=== PATIENT | female | born 1990 | race Caucasian/White ===

== ENCOUNTER 2021-08-04 18:17 | Day surgery (SDC) | payer OTHER ==
[2021-08-04 19:16] VITALS: BMI 31.1
[2021-08-04 20:05] LABS: Fetal Membranes Rupture No Membranes Rupture (No Rupture)
[2021-08-04] MEDS ORDERED: hydrALAZINE 20 MG/ML VIAL SLOW IVP PRN (21:10)
== END 2021-08-04 21:11 | disposition home or self-care (01) ==
LOC: CSHLD/OP 18:17
PROVIDERS: ATTEND Obstetrics & Gynecology
DX: O99.891 Other specified diseases and conditions complicating pregnancy (principal); N89.8 Other specified noninflammatory disorders of vagina; Z3A.38 38 weeks gestation of pregnancy
CPT/HCPCS: 84112; 99284

== ENCOUNTER 2021-08-14 11:09 | Outpatient (CLI) | payer OTHER ==
[2021-08-14 19:21] LABS: SARS-CoV-2 PCR by NAA Not Detected (NotDetected)
== END 2021-08-14 11:10 | disposition home or self-care (01) ==
LOC: CSHLAB 11:09
PROVIDERS: ATTEND Obstetrics & Gynecology
DX: Z20.822 Contact with and (suspected) exposure to COVID-19 (principal)
CPT/HCPCS: U0003; U0005

== ENCOUNTER 2021-08-17 22:45 | Inpatient (IN) | payer OTHER ==
[~2021-08-17 22:45] MED LIST: Bupivacaine 0.25% HCL 30 ML VIAL ONE
[2021-08-17 23:15] VITALS: BMI 31.1
[2021-08-17] MEDS ORDERED: Butorphanol Tartrate 1 MG/ML VIAL SLOW IVP PRN (23:41)
[2021-08-17] MEDS ORDERED: hydrALAZINE 20 MG/ML VIAL SLOW IVP PRN (23:41)
[2021-08-17] MEDS ORDERED: HYDROcodone/Acetaminophen 5/325 mg Tablet PO PRN (23:41)
[2021-08-17] MEDS ORDERED: Ibuprofen 800 MG TAB PO PRN (23:41)
[2021-08-17] MEDS ORDERED: Lidocaine 1% (PF) 30 ML VIAL SC PRN (23:41)
[2021-08-17] MEDS ORDERED: Ondansetron PF 4 MG/2 ML Vial IVP PRN (23:41)
[2021-08-17] MEDS ORDERED: Lactated Ringer's 1,000 ML IV SCH (23:45)
[2021-08-17] MEDS ORDERED: Penicillin G Potassium 5 MILL.UNITS VIAL ONE (23:50)
[2021-08-17] MEDS ORDERED: Penicillin G Potassium 5 MILL.UNITS in Sodium Chloride 0.9% 100 ML IVPB SCH (23:59)
[2021-08-18 00:25] LABS: Mean Corpuscular HGB CONC 33.1 g/dL (32.0-36.0); Mean Corpuscular Hemoglobin 28.9 pg (27.0-33.0); Mean Corpuscular Volume 87.3 fl (81.6-98.3); Mean Platelet Volume 10.9 fl (7.4-10.4); Platelet Count 217 10x3/uL (150-450); White Blood Cell (WBC) Count 9.6 10x3/uL (3.5-10.5)
[2021-08-18 01:07] LABS: Hep B Surf Ag Non-Reactive S/CO (NonReactive); Syphilis Antibody Nonreactive (Nonreactive); Syphilis Antibody Index 0.07 S/CO (<1.00 Non-Reactive)
[2021-08-18] MEDS: Misoprostol 100 MCG TAB PO SCH ×2 (01:17→11:40)
[2021-08-18] MEDS: Penicillin G 2.5 MILL.units 2.5 MILL.UNITS in Premix Bag 1 BAG IVPB SCH ×3 (03:55→11:36)
[2021-08-18] MEDS ORDERED: Fentanyl 2 mcg/Bup 0.1% Cadd 100 ML ONE (08:41)
[2021-08-18] MEDS ORDERED: diphenhydrAMINE 50 MG/ML VIAL IVP PRN (09:26)
[2021-08-18] MEDS ORDERED: Promethazine HCl 25 MG/ML VIAL IM PRN (09:26)
[2021-08-18] MEDS ORDERED: Lactated Ringer's 500 ML IV PRN (09:26)
[2021-08-18] MEDS ORDERED: ePHEDrine Sulfate 50 MG/10 ML VIAL SLOW IVP PRN (09:26)
[2021-08-18] MEDS ORDERED: Acetaminophen 325 MG TAB PO PRN (09:26)
[2021-08-18] MEDS ORDERED: Ondansetron PF 4 MG/2 ML Vial IVP PRN ×2 (09:26→20:40)
[2021-08-18] MEDS ORDERED: Hydrocerin (Eucerin) Cream 120 gm Jar TOP PRN (09:26)
[2021-08-18] MEDS ORDERED: Naloxone HCl 0.4 mg/ml Vial IVP PRN ×2 (09:26)
[2021-08-18] MEDS ORDERED: Fentanyl 2 mcg/Bupivacaine 0.1% Cassette 100 ML EPIDURAL SCH (09:30)
[2021-08-18] MEDS ORDERED: Communication Order-Pharmacy FS SCH (09:30)
[2021-08-18] MEDS: Lactated Ringer's 1,000 ML IV SCH ×2 (09:39)
[2021-08-18] MEDS: NS w/ Oxytocin 30 units 500 ML IV SCH ×2 (16:41→17:24)
[2021-08-18] MEDS ORDERED: diphenhydrAMINE 25 MG CAP PO PRN (20:40)
[2021-08-18] MEDS ORDERED: Boostrix 0.5 ML (Tdap) VIAL IM ONE (20:40)
[2021-08-18] MEDS ORDERED: Milk Of Magnesia 30 ML UDCUP PO PRN (20:40)
[2021-08-18] MEDS ORDERED: Benzocaine-Menthol 82.5 ML CAN TOP PRN (20:40)
[2021-08-18] MEDS ORDERED: hydrALAZINE 20 MG/ML VIAL SLOW IVP PRN (20:40)
[2021-08-18] MEDS ORDERED: Lanolin Ointment 7 GM TUBE TOP PRN (20:40)
[2021-08-18] MEDS ORDERED: Preparation H Ointment 28 GM TUBE PR PRN (20:40)
[2021-08-18] MEDS ORDERED: HYDROcodone/Acetaminophen 5/325 mg Tablet PO PRN ×2 (20:40)
[2021-08-18] MEDS ORDERED: NS w/ Oxytocin 30 units 500 ML IV SCH (20:40)
[2021-08-18] MEDS ORDERED: Bisacodyl 10 MG SUPP PR PRN (20:40)
[2021-08-18] MEDS: Docusate 100 MG CAP PO SCH (22:08)
[2021-08-18] MEDS: Ibuprofen 800 MG TAB PO SCH (22:08)
[2021-08-19] MEDS: Ibuprofen 800 MG TAB PO SCH ×3 (05:12→21:47)
[2021-08-19 05:56] LABS: Hemoglobin 10.6 g/dL (12.0-15.5)
[2021-08-19] MEDS: Prenatal Vitamin 1 TAB PO SCH (08:43)
[2021-08-19] MEDS: Docusate 100 MG CAP PO SCH ×2 (08:43→21:47)
[2021-08-19] MEDS: Ferrous Sulfate 325 MG TAB PO SCH (11:06)
[2021-08-20] MEDS: Ibuprofen 800 MG TAB PO SCH ×2 (05:00→13:43)
[2021-08-20] MEDS: Lactated Ringer's 1,000 ML IV SCH (07:56)
[2021-08-20] MEDS: Penicillin G 2.5 MILL.units 2.5 MILL.UNITS in Premix Bag 1 BAG IVPB SCH ×2 (07:56→07:59)
[2021-08-20] MEDS: Misoprostol 100 MCG TAB PO SCH ×2 (07:56→07:57)
[2021-08-20 08:00] VITALS: BP 104/58; TEMP 97.7
[2021-08-20] MEDS: Docusate 100 MG CAP PO SCH (08:52)
[2021-08-20] MEDS: Prenatal Vitamin 1 TAB PO SCH (08:52)
[2021-08-20] MEDS: Ferrous Sulfate 325 MG TAB PO SCH (08:52)
== END 2021-08-20 14:55 | disposition home or self-care (01) | DRG 807 ==
LOC: CSHLD/OP 22:45 → CSHLD 23:41 → UNDOADMIN 08-18 01:00 → CSHPP 08-18 20:15 → CSHLD 08-18 20:15
PROVIDERS: ADMIT Obstetrics & Gynecology; ATTEND Obstetrics & Gynecology
PROC: 10E0XZZ Delivery of Products of Conception, External Approach (ICD-10-PCS; principal; 2021-08-18)
PROC: 0KQM0ZZ Repair Perineum Muscle, Open Approach (ICD-10-PCS; 2021-08-18)
DX: O42.02 Full-term premature rupture of membranes, onset of labor within 24 hours of rupture (principal); Z37.0 Single live birth; Z3A.40 40 weeks gestation of pregnancy; O76 Abnormality in fetal heart rate and rhythm complicating labor and delivery; O70.1 Second degree perineal laceration during delivery; O99.824 Streptococcus B carrier state complicating childbirth
CPT/HCPCS: 36415; 51702; 85014; 85018; 85027; 86780; 86850; 86900; 86901; 87340; 99285; J0595; J2001; J2540; J2590; J7120; S0020